=== PATIENT | female | born 1980 | race Asian ===

== ENCOUNTER 2019-11-05 17:17 | Emergency (ER) | payer OTHER ==
[~2019-11-05] VITALS: Ht 170.2 cm; Wt 59.0 kg
[2019-11-05 17:23] VITALS: Ht 170.2 cm; Wt 59.0 kg
[2019-11-05 21:51] LABS: BASOPHIL % 0.5 % (0-2); PLATELET COUNT 283 x10^3mcL (130-400); RED CELL DISTRIBUTION WIDTH 12.6 % (11.5-14.5)
[2019-11-05 21:55] LABS: CALCIUM 9.4 mg/dL (8.5-10.1); CARBON DIOXIDE 31.3 mmol/L (21-32); CHLORIDE SERUM 101 mmol/L (98-107); CREATININE SERUM 0.4 mg/dL (0.6-1.0); GFR1 > 60 mL/min; GLUCOSE SERUM 79 mg/dL (74-106); POTASSIUM SERUM 3.5 mmol/L (3.5-5.1); SODIUM SERUM 138 mmol/L (136-145)
[2019-11-05 22:00] LABS: ALKALINE PHOSPHATASE 120 U/L (46-116); ALT/SGPT 34 U/L (14-59); AST/SGOT 8 U/L (15-37); LIPASE 98 IU/L (73-393)
[2019-11-05 22:02] LABS: TOTAL PROTEIN, SERUM 8.4 g/dL (6.4-8.2)
[2019-11-05 22:53] LABS: UA SPECIFIC GRAVITY <=1.005 (1.005-1.035); microscopic required? YES; urine erythrocyte NEGATIVE (NEGATIVE)
[2019-11-06 00:27] VITALS: BP 102/51
== END 2019-11-06 00:27 | disposition home or self-care (01) ==
LOC: ED 17:17
PROVIDERS: Emergency Medicine
DX: S93.401A Sprain of unspecified ligament of right ankle, initial encounter (principal); N39.0 Urinary tract infection, site not specified; W01.0XXA Fall on same level from slipping, tripping and stumbling without subsequent striking against object, initial encounter; Y93.89 Activity, other specified; Y92.89 Other specified places as the place of occurrence of the external cause; Y99.8 Other external cause status
CPT/HCPCS: J0696; J1885; J2270; J2405; J7030; J7060

== ENCOUNTER 2020-06-21 20:27 | Emergency (ER) | payer OTHER | END 2020-06-21 21:38 | disposition other institution (70) | LOC: ED 20:27 | DX: Z02.89 Encounter for other administrative examinations (principal) ==

== ENCOUNTER 2020-06-21 20:27 | Emergency (ER) | payer OTHER ==
[2020-06-21 21:38] VITALS: BP 121/73
== END 2020-06-21 21:38 | disposition other institution (70) ==
LOC: ED 20:27
DX: M25.552 Pain in left hip (principal); C49.9 Malignant neoplasm of connective and soft tissue, unspecified
CPT/HCPCS: J2270; Q0162